=== PATIENT | female | born 1960 | race Caucasian/White ===

== ENCOUNTER → 2025-01-11 09:55 | Outpatient (BNVA) | payer OTHER, SELFPAY | PROVIDERS: Visit Provider Nurse Practitioner | DX: S46.912A Strain of unspecified muscle, fascia and tendon at shoulder and upper arm level, left arm, initial encounter (principal); M35.00 Sjogren syndrome, unspecified; E11.9 Type 2 diabetes mellitus without complications; I10 Essential (primary) hypertension; R93.6 Abnormal findings on diagnostic imaging of limbs | CPT/HCPCS: 73030; 80053; 80061; 83036; 85025; 85651; 86038; 86140 ==

== ENCOUNTER → 2025-03-10 12:05 | Outpatient (BNVA) | payer OTHER, SELFPAY | PROVIDERS: Referring Provider Nurse Practitioner; Visit Provider Internal Medicine Rheumatology | DX: M25.50 Pain in unspecified joint (principal); M35.00 Sjogren syndrome, unspecified; Z79.899 Other long term (current) drug therapy | CPT/HCPCS: 36415; 80076; 82306; 82550; 82565; 83520; 85025; 85651; 86140; 86431; 86480; 86704; 86803; 87340 ==